=== PATIENT | male | born 1975 | race Caucasian/White ===

== ENCOUNTER 2021-12-19 09:16 | Emergency (ER) | payer MEDICAID ==
[~2021-12-19] VITALS: Ht 177.8 cm; Wt 104.3 kg
--- OUTSIDE RECORDS SUMMARY | 2021-12-19 09:18 | XMS ---
PreManage Notification: BC ALONSO Security Note Taker Events No recent Security Events currently on file CRITERIA MET - PDM - [facility] - 2 Visits in 30 Days CARE PROVIDERS [facility]: Federally Qualified 05/08/2017-[facility] ([facility] [place] PHONE: [phone] [place] [facility] [place] PHONE: Unknown LEOBARDO PEREZ [facility] PHONE: [phone] Care Guidelines exist for the following facilities: [facility] ( 02/12/2019 ) [place] VISIT COUNT (12 MO.) 2 [facility] [place] TOTAL 2 NOTE: Visits indicate total known visits. ED/UCC VISIT TRACKING (12 MO.) 12/19/2021 09:16 [facility] [place] TYPE: Emergency COMPLAINT: - DIABETIC ISSUE 12/12/2021 18:00 [facility] TYPE: Emergency COMPLAINT: - COVID+ BACK PAIN INPATIENT VISIT TRACKING (12 MO.) No inpatient visits to display in this time frame [email or web address]
[2021-12-19] MEDS ORDERED: OXYCODONE HCL10 MG PO (09:40)
[2021-12-19] MEDS ORDERED: OMEPRAZOLE20 MG PO (09:40)
[2021-12-19] MEDS ORDERED: SUDOGEST60 MG PO (09:40)
[2021-12-19] MEDS ORDERED: FLUTICASONE PRO16 GM NAS (09:40)
[2021-12-19] MEDS ORDERED: HUMULIN N100 UNIT/1 SUB-Q (09:41)
[2021-12-19] MEDS ORDERED: TRULICITY1.5 MG/0.5 SUB-Q (09:42)
[2021-12-19] MEDS ORDERED: ONETOUCH ULTRA1 EACH MC (09:42)
[2021-12-19] MEDS ORDERED: VYVANSE60 MG PO (09:42)
[2021-12-19] MEDS ORDERED: MORPHINE SULFAT15 M1 PO (09:42)
[2021-12-19] MEDS ORDERED: PREGABALIN50 MG PO (09:43)
[2021-12-19] MEDS ORDERED: BACLOFEN10 MG PO (09:43)
[2021-12-19] MEDS ORDERED: LORATADINE10 MG PO (09:43)
[2021-12-19] MEDS ORDERED: METFORMIN HCL1000 MG PO (09:43)
--- NOTE | 2021-12-20 16:49 | EKG ---
[facility] [address] [facility] [place] [address] Signed Normal sinus rhythm Incomplete right bundle branch block Possible Right ventricular hypertrophy ST \T\ T wave abnormality, consider inferior ischemia Abnormal ECG No previous ECGs available Confirmed by OLENA HANNA MD ([id number]) on 12/20/2021 4:49:39 PM Electronically Signed By: OLENA HANNA MD 12/20/21 1649 PATIENT NAME: BC ALONSO Electrocardiogram DATE OF : 71 PHYSICIAN: OLENA HANNA MD REPORT #: [id number] REPORT IS CONFIDENTIAL AND NOT TO BE RELEASED WITHOUT AUTHORIZATION
== END 2021-12-19 20:29 | disposition short-term general hospital (02) ==
LOC: ED 09:16
DX: I46.9 Cardiac arrest, cause unspecified (principal); U07.1 COVID-19; I26.99 Other pulmonary embolism without acute cor pulmonale; J18.9 Pneumonia, unspecified organism; I63.9 Cerebral infarction, unspecified; E11.9 Type 2 diabetes mellitus without complications; Z79.899 Other long term (current) drug therapy; Z79.891 Long term (current) use of opiate analgesic; Z79.84 Long term (current) use of oral hypoglycemic drugs
CPT/HCPCS: 31500; 36415; 36556; 36600; 51702; 70450; 71045; 71250; 71260; 74176; 80053; 81001; 82010; 82800; 82803; 83605; 83690; 83735; 85025; 87040; 87077; 87088; 87186; 93005; 93010; 99285-25; C9803; J0692; J1815; J1956; J2060; J2250; J3243; J7030; J7060; J7070; Q9967; U0003